=== PATIENT | female | born 1980 | race Caucasian/White ===

== ENCOUNTER 2016-07-29 21:36 | Emergency (ER) | payer OTHER ==
[~2016-07-29] VITALS: Ht 167.6 cm; Wt 129.5 kg
[2016-07-29 21:43] VITALS: BP 120/82; PULSE 104; RESP 16; O2SAT 96
--- NOTE | 2016-07-29 23:54 | ED.REPORT ---
HPI-GI Bleed Date of Service Jul 29, 2016 ED Provider: Donavan Henley MD The patient is a 36 year old female who presents to the ED due to blood in the toilet after a BM earlier today. She wiped herself earlier and noticed blood on the toilet paper and in the toilet bowl. She has had a hemorrhoid since her daughter was born 16 years ago. She has had minimal bleeding previously but her symptoms have never been this severe. She denies constipation, abdominal pain and is currently on her menstrual cycle. Nursing Notes Stated Complaint: HEMMORHOID Chief Complaint: General Complaint Nursing Notes Reviewed: Yes Allergies: Coded Allergies: Sulfa (Sulfonamide Antibiotics) (Verified Allergy, Unknown, 07/29/16) cefprozil (Verified Allergy, Unknown, 07/29/16) Miscellaneous Medications ([None]) General Time Seen by Provider: 23:52 Chief Complaint Chief Complaint: Blood on toilet tissue Bleeding Severity: Minimal Hx Obtained From: Patient Arrived By: Walk-in Onset Occurred: Just prior to arrival Context of Onset: Bleeding after BM Symptom Duration: Since onset Severity: Current: No pain currently Recent Healthcare: Recent doctor visit Similar Sx Previous: Yes Past Medical History Past Medical History hemorrhoid Past Surgical History Reports: Appendectomy, , Cholecystectomy Smoking History Unknown if Ever Smoker Social History Other Social History: Good social support, Local resident Ambulatory Status Independent Review of Systems GI: Reports: Bloody/tarry stool, Denies: Abdominal pain, Constipation Complete sys rev & neg: except as marked. Physical Exam Physical Exam Notes: Initial Vital Signs Vital Signs (First) Date Time Temp Pulse Resp B/P Pulse Ox O2 Delivery O2 Flow Rate FiO2 07/29/16 21:43 35.9 104 16 120/82 96 Room Air Initial VS: Reviewed, Vital signs abnormal General/Constitutional: Awake, Alert, No acute distress, Cooperative no diaphoresis Respiratory / Chest: Atraumatic, Breath sounds NL Cardiovascular: Heart rate NL, Regular rhythm, Heart sounds NL Abdomen: Atraumatic, Soft Rectum / Perineum Abnl: Positive: Fissure present hemorrhoidal tag that is not active fissure which is not actively bleeding at base of hemorrhoidal tag Interpretation & Diagnostics Lab Results Interpretation Result Diagram: 07/30/16 0020 Test 07/30/16 00:20 White Blood Count 5.9th/mm3 (3.8-10.1) Red Blood Count 4.49mil/mm3 (3.90-5.20) Hemoglobin 13.1g/dL (12.0-15.6) Hematocrit 37.7% (35.0-46.0) Mean Corpuscular Volume 84.0fL (81-100) Mean Corpuscular Hemoglobin 29.2pg (27.0-35.0) Mean Corpuscular Hemoglobin Concent 34.7% (32.0-37.0) Red Cell Distribution Width 13.2% (12.3-15.4) Platelet Count 274bil/L (150-400) Neutrophils (%) (Auto) 49.6% (40-74) Lymphocytes (%) (Auto) 38.4% (14-46) Monocytes (%) (Auto) 8.0% (4-12) Eosinophils (%) (Auto) 3.6% (0-5) Basophils (%) (Auto) 0.2% (0-3) Hold Bowen Top Tube Received (Received) Lab values outside NL range: no clinical significance. Re-Eval/Medical Decision Med Decision/Clinical Course 36-year-old female who presents with bright red blood per rectum. She is found to have a hemorrhoidal tag with a small fissure at its base, not currently bleeding. She has no vital sign or laboratory evidence of dangerous blood loss. She will be discharged home. She will continue using the hemorrhoidal cream that she has been using. She will follow-up with her primary doctor on Wednesday to discuss need for lower endoscopy. Counseled Regarding: Diagnosis, Lab results, Need for follow-up, When/why to return to ED Discharge & Departure Departure Notes Your blood work and vital signs do not indicate that you have lost a dangerous amount of blood. Your blood cells are at the small end of normal, indicating that you probably still have some minor iron deficiency anemia. I would recommend that you take a multivitamin with iron. Your bleeding is likely from an anal fissure. This will heal on its own over the next few days. You can tolerate a similar amount of blood loss for a few days. Use the hemorrhoidal cream the ear doctor gave you. See your doctor on Wednesday as planned. You will need further evaluation to ensure that there is not a cause of bleeding above what we can see. Impression: Primary Impression: Anal fissure Additional Impression: Hemorrhoid Hemorrhoid type: unspecified Qualified Code: K64.9 - Unspecified hemorrhoids Disposition: Home Discharge Condition All VS Reviewed: Yes Condition: Stable Patient Instructions: Anal Fissure (ED) Additional Instructions: Your blood count is fine but you are borderline anemic. You can try taking an iron supplement. Suppositories and anti-inflammatory cream. Please follow up with an sigmoidoscopy to have your colon checked. Talk to your primary care physician about having this procedure completed. Return to the Emergency Department for any new or worsening symptoms. I hope you feel better soon! Referrals: [facility] Sandra Attestation Portion of this note were transcribed by Kelly Scott. I, Dr. Henley, personally performed the history, physical exam, and medical decision-making: I reviewed and confirmed the accuracy for the information in the transcribed note. Signed by: sandra Olivas, 07/30/16 0100 copies to: [facility] Donavan Henley MD Jul 29, 2016 23:54 Kelly Scott Jul 30, 2016 00:02
[2016-07-30 00:34] LABS: BASOPHILS % (AUTO) 0.2 % (0-3); EOSINOPHILS % (AUTO) 3.6 % (0-5); Mean Corpuscular Hemoglobin 29.2 pg (27.0-35.0); NEUTROPHILS % (AUTO) 49.6 % (40-74); Platelet Count 274 bil/L (150-400)
[2016-07-30 01:04] VITALS: BP 122/80; PULSE 98; RESP 16; O2SAT 97
== END 2016-07-30 00:56 | disposition home or self-care (01) ==
LOC: SED 21:36
DX: K60.2 Anal fissure, unspecified (principal); K64.4 Residual hemorrhoidal skin tags; Z88.2 Allergy status to sulfonamides; Z88.8 Allergy status to other drugs, medicaments and biological substances